=== PATIENT | female | born 1945 | race Caucasian/White ===

== ENCOUNTER 2018-06-04 08:00 | Day surgery (SDC) | payer OTHER, SELFPAY ==
[2018-06-04 08:50] VITALS: BP 127/78; PULSE 98; RESP 16; TEMP 36.3; O2SAT 93; BMI 42.5
[2018-06-04] MEDS: LACTATED RINGERS 1,000 ML 42 ML IV (08:57)
--- NOTE | 2018-06-04 09:03 | PM.PREOP ---
Pre-operative Note Interval Note Pre-op Check: Yes History & Physical Reviewed by Physician and Yes Exam Performed Changes: No
--- NOTE | 2018-06-04 10:32 | PM.OP.ENDO ---
Operative Date/Time/Diagnoses Date of procedure: 06/04/18 Time of procedure: 10:32 Pre-op diagnosis: Diarrhea chronic. Rectal bleeding intermittent. Post-op diagnosis: same (Two polyps. Extensive mann colonic diverticulosis with narrowing in the sigmoid colon) Procedure & Clinicians Study performed: Colonoscopy with cold biopsy Same procedure as scheduled: Yes Indications: Bleeding chronic diarrhea Surgeon: Turner Ashford Procedure Notes SCOAP/Timeout: Performed Scope withdrawal time: 13 min Sedation minutes: 0 Findings: diverticulosis, internal hemorrhoids (Small internal hemorrhoids but large external tags) and polyp (Ascending colon x2) Specimen(s): other (Polyps) Complications: none Recommendations: Colonscopy in 5 years Plan for aftercare: We will send you a letter regarding her pathology report Follow up: as needed Disposition: PACU
[2018-06-04 10:37] VITALS: BP 135/74; PULSE 103; RESP 14; TEMP 36.4; O2SAT 92
[2018-06-04 10:42] VITALS: BP 116/61; PULSE 104; RESP 12; O2SAT 91
[2018-06-04 10:47] VITALS: BP 111/65; PULSE 104; RESP 11; O2SAT 93
[2018-06-04 10:52] VITALS: BP 109/67; PULSE 101; RESP 19; TEMP 36.2; O2SAT 95
[2018-06-04 12:46] LABS: Adenovirus F 40/41 Not Detected (Not Detect); Astrovirus Not Detected (Not Detect); Campylobacter Not Detected (Not Detect); Clostridium difficile toxin AB Not Detected (Not Detect); Cryptosporidium Not Detected (Not Detect); Cyclospora cayetanensis Not Detected (Not Detect); Entamoeba histolytica Not Detected (Not Detect); Enteroaggregative E.coli Not Detected (Not Detect); Enteropathogenic E.coli Not Detected (Not Detect); Enterotoxigenic E.coli It/st Not Detected (Not Detect); Giardia lamblia Not Detected (Not Detect); Norovirus GI/GII Not Detected (Not Detect); Plesiomonsa shigelloides Not Detected (Not Detect); Rotavirus A Not Detected (Not Detect); Salmonella Not Detected (Not Detect); Sapovirus Not Detected; Shiga-like toxin-prod E.coli Not Detected (Not Detect); Shigella/Enteroinvasive E.coli Not Detected (Not Detect); Vibrio Not Detected (Not Detect); Vibrio cholerae Not Detected (Not Detect); Yersinia enterocolitica Not Detected (Not Detect)
--- NOTE | 2018-06-04 23:22 | PATH_ITS ---
Specimen ID: [id number] Control ID: [facility] PATHOLOGY ONLY [id number] [address] [facility] [id number] Patient Details SP JOHNS : 1945 Age(y/m/d): Gender: F SSN: Additional Information: Clinical Info: [id number] Specimen Details Date collected: 06/04/20182321 Local Date received: 06/04/2018 Date entered: 06/04/2018 Date reported: 06/10/2018 1905 ET Physician Details Ordering: Elisa CHANDLER Referring: ID: Tests Ordered: Pathology Report Clinician Provided ICD Code(s) & Clinical History: Material Submitted: () PART A: POLYP ASCENDING COLON PART B: RANDOM SIGMOID Diagnosis: (02) Polyp, Ascending Colon: Tubular adenoma. Sigmoid Colon, Random Biopsies: Normal colonic mucosa. No significant inflammation identified. No evidence of malignancy or dysplasia. BFI/06/05/2018 Pathologist Provided ICD Code(s): (02) D12.6 CPT Codes: (02) 544036, 356746 Gross Description: (01) Received two formalin-filled containers, both labeled with the patient's name: In a container labeled ascending polyp colon, are multiple less than 0.1 cm to 0.2 cm portions of tissue, which are filtered, wrapped, and entirely submitted in cassette A. In a container labeled random sigmoid, are multiple less than 0.1 cm to 0.3 cm portions of tissue, which are filtered, wrapped, and entirely submitted in cassette B. ([id number]) /FRR This is an amended report due to a clerical error. There is no change in the diagnosis. This case is amended in order for the results to cross the electronic interface. The final diagnosis is unchanged. This case was originally reported and reviewed by Dr. Tito Black on 06/05/2018. Electronically signed by () Kesha Richardson MD, Pathologist NPI- [id number]
== END 2018-06-04 10:52 | disposition home or self-care (01) ==
PROVIDERS: Family Provider Family Medicine; PCP Family Medicine; Visit Provider Specialist
PROC: 0DJD8ZZ Inspection of Lower Intestinal Tract, Via Natural or Artificial Opening Endoscopic (ICD-10-PCS; CPT 45378; principal; 2018-06-04 09:15)
DX: D12.2 Benign neoplasm of ascending colon (principal); R19.7 Diarrhea, unspecified; K57.30 Diverticulosis of large intestine without perforation or abscess without bleeding; K64.8 Other hemorrhoids; K64.4 Residual hemorrhoidal skin tags; I10 Essential (primary) hypertension; E11.9 Type 2 diabetes mellitus without complications; Z79.4 Long term (current) use of insulin; E66.9 Obesity, unspecified; E78.00 Pure hypercholesterolemia, unspecified; E03.9 Hypothyroidism, unspecified
CPT/HCPCS: 45380; 87177; 87507; J0330; J2405; J2704; J3010

== ENCOUNTER → 2018-12-08 11:47 | Outpatient (CLI) | payer OTHER, SELFPAY ==
--- NOTE | 2018-12-08 | DI.MG.S_ITS ---
BILATERAL DIGITAL SCREENING MAMMOGRAM 3D/2D WITH CAD: 12/08/2018 CLINICAL: Routine screening. Family history of breast cancer. Comparison is made to exams dated: 08/20/2016 mammogram, 01/05/2015 mammogram, and 12/28/2013 mammogram - [facility]. The tissue of both breasts is predominantly fatty. Current study was also evaluated with a Computer Aided Detection (CAD) system. There are benign post operative findings in the left breast. No significant masses, calcifications, or other findings are seen in either breast. There has been no significant interval change. IMPRESSION: There is no mammographic evidence of malignancy. A 1 year screening mammogram is recommended. This exam was interpreted at Station ID: [id number]. NOTE: For mammograms, a report in lay terms will be sent to the patient. Approximately 15% of breast malignancies will not be visualized mammographically. In the management of a palpable breast mass, a negative mammogram must not discourage biopsy of a clinically suspicious lesion. Electronically Signed By: Fernando hill/thuy:12/08/2018 13:35:55 copy to: Maye Alejandre letter sent: Normal Exam ACR BI-RADS Category 2: Benign Finding(s) 3342F
== END ==
PROVIDERS: PCP Family Medicine; Visit Provider Family Medicine
DX: Z12.31 Encounter for screening mammogram for malignant neoplasm of breast (principal); Z80.3 Family history of malignant neoplasm of breast
CPT/HCPCS: 77063; 77067

== ENCOUNTER → 2019-04-28 12:53 | Outpatient (CLI) | payer OTHER, SELFPAY ==
--- NOTE | 2019-04-28 | DI.US.S_ITS ---
PROCEDURE: US ABDOMEN COMPLETE INDICATIONS: ABDOMINAL PAIN TECHNIQUE: Real-time scanning was performed of the abdominal and retroperitoneal organs, with image documentation. COMPARISON: [facility], CT, KIDNEY/ URETER/BLADDER, 06/05/2016, 13:52. FINDINGS: Liver: Liver is normal in size and demonstrates diffusely increased echotexture. Gallbladder: Surgically absent. Biliary ducts: Intrahepatic bile ducts are non-dilated. Extrahepatic bile duct caliber measures 9.3 mm. Normal is 6-7 mm or less in diameter, or 10 mm or less post-cholecystectomy. Pancreas: Visualized portions of the pancreas are sonographically normal. Spleen: Spleen is normal in size and homogeneous in echotexture. Kidneys: Kidneys are normal in size and echotexture. Right kidney measures 11.2 cm long; left kidney measures 12.0 cm long. No hydronephrosis or nephrolithiasis. No solid masses. Aorta: Visualized aorta is normal in caliber at less than 3 cm. Iliacs: Proximal common iliac arteries are obscured by overlying bowel gas. IVC: Intrahepatic inferior vena cava is patent. Miscellaneous: No free abdominal fluid. IMPRESSION: 1. Diffusely increased hepatic echotexture. This finding is most likely secondary to hepatic fatty infiltration although other hepatocellular disease may have a similar appearance. Recommend clinical correlation. 2. Cholecystectomy. 3. Dilated common bile duct is most likely secondary to cholecystectomy. Please correlate with serum bilirubin. Dictated by: Mj Puri M.D. on 04/28/2019 at 15:54 Approved by: Mj Puri M.D. on 04/28/2019 at 15:58
== END ==
PROVIDERS: PCP Family Medicine; Visit Provider Family Medicine
DX: R10.9 Unspecified abdominal pain (principal); K83.8 Other specified diseases of biliary tract; Z90.49 Acquired absence of other specified parts of digestive tract
CPT/HCPCS: 76700

== ENCOUNTER → 2019-08-26 13:25 | Outpatient (CLI) | payer OTHER, SELFPAY ==
--- NOTE | 2019-08-26 14:58 | PM.TREADMILL ---
Cardiac Stress Test Report Referral & Results Date Patient Seen: 08/26/19 Requesting provider: Estelita King Indication: Known coronary disease Rest ECG: Unremarkable Procedure Note: Today following both written and verbal informed consent the patient was exercised according to a standard Raymundo protocol patient went for a total of 3 minutes and 26 seconds, all at stage I Raymundo, achieving a maximum heart rate of 140 maximum systolic blood pressure of 220. This is approximately 4.6 METS. Exercise was terminated at this point because of []. Patient was also given Cardiolite through a previously started Hep-Lock IV by the diagnostic imaging staff approximately 1 minute prior to the cessation of exercise. Patient was able to walk on a treadmill any faster than stage I Raymundo protocol. Therefore the treadmill was held at that stage. No ST-T segment changes identified Normal heart rate although quickly tachycardic but consistent with her level of exertion. Patient hypertensive throughout Rare PAC Function aerobic impairment rated about 40% of the sedentary scale Impression: No ECG evidence of ischemia Limited exercise capacity Hypertension Please see perfusion imaging report as well Please note: Actual ECG tracings can be found in the PACS system.
--- NOTE | 2019-08-28 08:05 | DI.NM.S_ITS ---
DATE OF SERVICE: 08/26/2019 PROCEDURE PERFORMED: Exercise treadmill stress and rest myocardial perfusion imaging study with gating to assess ejection fraction and regional wall motion. ORDERING PHYSICIAN: Estelita King MD INDICATIONS: The patient is a 74-year-old obese diabetic hyperlipidemic female with exertional dyspnea and coronary calcification on CT scanning. EXERCISE TREADMILL TESTING: The patient was able to exercise for a total of 3 minutes 26 seconds on a standard Raymundo protocol, suggesting moderate-severely reduced exercise capacity with an MERE of +30%. She had an accelerated heart rate response to exercise with a resting heart rate of 87 bpm that increased to 132 bpm after 2.5 minutes of exercise and reached a peak heart rate of 140 bpm (95% of her predicted maximum). She had a hypertensive blood pressure response with a resting blood pressure of 170/80 increasing to a maximum of 220/96. She had no chest discomfort. Her resting ECG shows sinus rhythm with fairly normal ST segments. There are no significant ST segment shifts with exercise. She develops frequent PVCs at peak exercise but no complex ventricular ectopy. At 2 minutes 32 seconds of exercise, at a heart rate of 132 bpm, 26.2 mCi of technetium 99 Myoview was injected and the patient was imaged 15 minutes later using a gated SPECT acquisition protocol. She returned the following day and was reinjected with an additional 27.3 mCi of technetium 99 Myoview and was imaged 30 minutes later, again using a gated SPECT acquisition protocol. FINDINGS: 1. Raw data: There is marginal image quality, predominantly due to fairly dense breast attenuation seen on the raw data images. Lung/heart ratio is normal at 0.28 with a normal TID ratio of 1.00. 2. Quantitative gated SPECT: Post-stress ejection fraction is estimated at 65% without any focal wall motion abnormality, and specifically the anterior wall appears to have normal contractility. Resting ejection fraction is 68% with an end-diastolic volume of 130 mL. 3. Myocardial perfusion imaging: Post-stress supine images show a fairly normal perfusion pattern but with a very subtle defect in the mid to distal anterior wall in a pattern that would be consistent with breast attenuation artifact. There is also a very subtle defect in the mid inferior wall, consistent with diaphragmatic attenuation. Both of these defects essentially resolve on prone imaging, although a very subtle defect remains present in the anterior septum on the prone images but shifted medially, suggesting differential breast positioning. The resting images show a similar perfusion pattern, again with a mild anterior and inferior defect. CONCLUSION: 1. Probable normal myocardial perfusion study. 2. A subtle fixed mid to distal anterior defect that essentially resolves on prone imaging, most consistent with breast attenuation artifact. The absence of any regional wall motion abnormality mitigates against any previous infarct. There is no compelling evidence for myocardial ischemia. 3. Normal left ventricular systolic function without any focal regional wall motion abnormality. 4. Moderate-severely reduced exercise capacity with an accelerated heart rate response and hypertensive blood pressure response, suggesting poor cardiovascular fitness but no angina or ECG changes of ischemia, although frequent PVCs at peak exercise but no complex ventricular ectopy. SarthakMahnaz - RS/fn/ts doc#: [id number]/job#: [id number] dd: 08/27/2019 16:30:00 dt: 08/28/2019 07:43:00 DICTATING /COPIES TO: Liam Williamson MD; Estelita King MD COPIES MNE: EN RIOS
== END ==
PROVIDERS: PCP Family Medicine; Visit Provider Internal Medicine Cardiovascular Disease
DX: R06.09 Other forms of dyspnea (principal); I25.10 Atherosclerotic heart disease of native coronary artery without angina pectoris; E66.9 Obesity, unspecified; E11.9 Type 2 diabetes mellitus without complications; E78.5 Hyperlipidemia, unspecified; I10 Essential (primary) hypertension
CPT/HCPCS: 78452; 93016; 93017; 93018; A9502

== ENCOUNTER 2019-09-04 16:34 | Emergency (ER) | payer OTHER, SELFPAY ==
[2019-09-04 16:50] VITALS: BP 158/88; PULSE 97; RESP 22; TEMP 36.8; O2SAT 93
[2019-09-04 18:13] LABS: Bacteria Urine Few (2-10); Culture Indicated Urine Specimen Cultured; RBC Urine 1-5/HPF (0-5/HPF); Squamous Epithelial Cell Urine 0-1 /HPF (0-5/HPF); WBC Urine 10-30/HPF (0-5/HPF)
[2019-09-04 18:14] LABS: Add Manual Diff / Slide Review NO; Basophils Absolute Auto 100 /uL (0-100); Basophils Percent Auto 0.7 % (0-2); Eosinophils Absolute Auto 100 /uL (0-450); Eosinophils Percent Auto 0.5 % (2-4); Hemoglobin 14.4 g/dL (12.0-16.0); Lymphocytes Absolute Auto 1200 /uL (1100-4500); Lymphocytes Percent Auto 7.5 % (25-40); Mean Corpuscular HGB Conc 33.4 % (30-36); Mean Corpuscular Hemoglobin 31.5 PG (26-34); Mean Corpuscular Volume 94.1 fL (80-100); Monocytes Absolute Auto 700 /uL (0-900); Monocytes Percent Auto 4.3 % (3-14); Neutrophils Absolute Auto 13900 /uL (1500-7000); Platelet Count 283 X10^3/uL (150-400); Red Blood Cell Count 4.57 X10^6/uL (4.0-5.2); Red Cell Distribution Width 12.8 % (11.6-14.8); White Blood Cell Count 15.9 X10^3/uL (4.5-11.0)
[2019-09-04 18:28] LABS: Prothrombin Time 11.2 SECONDS (10.1-12.7)
[2019-09-04 18:31] LABS: PTT Partial Thromboplastin Tim 33 SECONDS (26.4-36.2)
--- NOTE | 2019-09-04 18:31 | ED.ABDPAIN ---
HPI - Abdominal Pain General Chief Complaint: Abdominal Pain Stated Complaint: lower left abdominal pain with vomiting and diarrh Time Seen by Provider: 09/04/19 16:40 Mode of arrival: Wheelchair History of Present Illness HPI narrative: 74-year-old female former smoker with history of kidney stones and diverticulitis presents with a chief complaint of a day or 2 of gradually worsening severe left lower quadrant pain. She has had some nausea and some vomiting and loose stools. Additionally she admits to some dysuria, frequency and urgency. Her pain is worse when she moves and improves with rest. It includes her left flank and goes down into her left groin. She has had subjective fever and chills MD complaint: flank pain Onset (ago): day(s) Pain Consistency: constant Location: LUQ, LLQ and L flank Severity: moderate Quality: cramping, stabbing and aching Migration to: no migration Relieving factors: rest Exacerbating factors: movement Associated symptoms: nausea, vomiting and diarrhea Related Data Home Medications Medication Instructions Recorded Confirmed alprazolam [Xanax] 0.5 mg PO DAILY #0 06/17/16 06/02/18 cyclobenzaprine 10 mg PO BID #0 06/17/16 06/04/18 flunisolide 2 spray INTRANASAL BIDP PRN #0 06/17/16 06/04/18 insulin glargine [Lantus U-100 35 unit SQ BID #0 06/17/16 06/04/18 Insulin] levothyroxine 200 mcg PO QAM #0 06/17/16 06/04/18 lisinopril 40 mg PO QDAY #30 tab 06/17/16 06/04/18 metformin [Glucophage XR] 1,000 mg PO DAILY #0 06/17/16 06/04/18 insulin lispro [Humalog KwikPen 25 unit SQ TID #0 06/21/16 06/04/18 Insulin] aspirin 81 mg PO QDAY #0 12/02/16 06/04/18 cholecalciferol (vitamin D3) 2,000 iu PO QDAY #0 12/02/16 06/04/18 [Vitamin D3] diazepam [Valium] 10 mg PO HSP PRN #0 12/02/16 06/04/18 magnesium oxide 250 mg PO QDAY #0 12/02/16 06/04/18 simethicone [Phazyme] 180 mg PO TID #0 12/02/16 06/04/18 simvastatin 20 mg PO QDAY #0 12/02/16 06/04/18 vitamin B complex [B 1 tab PO QDAY #0 12/02/16 06/04/18 Complex-Vitamin B12] vitamin E 400 unit PO QDAY #0 12/02/16 06/04/18 omeprazole 40 mg capsule,delayed 40 mg PO DAILY 06/02/18 06/04/18 release ascorbic acid (vitamin C) 1,000 mg PO DAILY 06/04/18 06/04/18 Allergies Allergy/AdvReac Type Severity Reaction Status Date / Time hydromorphone [HYDROMORPHONE] Allergy Severe PASSED Verified 06/04/18 08:33 OUT, EMESIS Iodine and Iodide Containing Allergy Mild HIVES, Verified 06/04/18 08:33 Produc RASH, [IODINE AND IODIDE ITCHING CONTAINING PRODUC] (HAS TO TAKE PILLS PRIOR TO CT SCAN) lovastatin [LOVASTATIN] Allergy Unknown Verified 06/04/18 08:33 oxycodone [OXYCODONE] Allergy Unknown Disoriented Verified 06/04/18 08:33 and lethargic felodipine [FELODIPINE] AdvReac Mild RED, Verified 06/04/18 08:33 VASODILATION, DIDN'T WORK fluticasone [FLUTICASONE] AdvReac Mild HEADACHE Verified 06/04/18 08:33 Sulfa (Sulfonamide AdvReac Mild TURNED RED Verified 06/04/18 08:33 Antibiotics) [SULFA (SULFONAMIDE ANTIBIOTICS)] Review of Systems Constitutional Constitutional: Reports chills, Denies fatigue, Reports fever(s), Denies frequent falls, Denies lethargy and Denies weakness Eyes Eyes: Denies change in vision, Denies eye discharge, Denies irritation and Denies loss of vision ENT Ears, Nose, Mouth, and Throat: Denies change in voice, Denies dizziness, Denies neck pain, Denies sore throat and Denies throat swelling Cardiovascular Cardiovascular: Denies chest pain, Denies irregular heart rhythm, Denies lightheadedness, Denies palpitations, Denies dyspnea, Denies dyspnea on exertion and Denies orthopnea Respiratory Respiratory: Denies cough, Denies dyspnea, Denies dyspnea on exertion and Denies wheezing Gastrointestinal Gastrointestinal: Reports abdominal pain, Denies change in bowel habits, Reports diarrhea, Reports nausea and Reports vomiting Genitourinary Genitourinary: Denies hematuria, Denies flank pain, Denies urinary incontinence and Reports urinary urgency Musculoskeletal Musculoskeletal: Denies back pain, Denies muscle weakness, Denies neck pain, Denies numbness and Denies tingling Integumentary/Breasts Skin/Breast: Denies pruritus, Denies erythema, Denies rash and Denies wounds Neurologic Neurologic: Denies behavioral changes, Denies confusion, Denies dizziness, Denies frequent falls, Denies loss of vision, Denies numbness, Denies tingling and Denies weakness Psychiatric Psychiatric: Denies anxiety, Denies behavioral changes, Denies confusion, Denies depression, Denies homicidal ideation and Denies suicidal ideation Endocrine Endocrine: Denies fatigue, Denies flushing and Denies palpitations Hematologic/Lymphatic Hematologic/Lymphatic: Denies easy bruising Allergic/Immunologic Allergic/Immunologic: Denies urticaria, Denies throat swelling and Denies wheezing Patient History Medical History Chronic diarrhea (Chronic) Diabetes mellitus type 2 in obese (Chronic) Elevated cholesterol (Chronic) Essential hypertension (Chronic) H/O nephrolithotomy with removal of calculi (Inactive) History of uterine cancer (Inactive) Hypothyroidism (Chronic) Surgical History H/O cervical spine surgery (Inactive) History of appendectomy (Resolved) History of cholecystectomy (Resolved) History of incisional hernia repair (Inactive) History of total left knee replacement (Inactive) Previous back surgery (Inactive) S/P JAE-BSO (Inactive) Family History Father Heart disease Gallstones Diabetes mellitus Mother Gallstones Social History (Updated 06/02/18 @ 18:08 by Turner Ashford MD) household members: spouse Smoking Status: Former smoker Tobacco: How many years used: 35 alcohol intake: never substance use type: does not use Family History Father Heart disease Gallstones Diabetes mellitus Mother Gallstones Social History household members: spouse Smoking Status: Former smoker Tobacco: How many years used: 35 alcohol intake: never substance use type: does not use alcohol intake frequency: other Exam Narrative Exam Narrative: GENERAL: [74] year old patient appears stated age. Well-nourished, well-developed patient, in mild distress. Ill-appearing, rubbing her left lower quadrant HEAD: Atraumatic. Normocephalic. EYES: Pupils equal round and reactive. Extraocular motions intact. No scleral icterus. No injection or drainage. ENT: Nose without bleeding, purulent drainage. Throat without erythema, tonsillar hypertrophy or exudate. Airway patent. NECK: Trachea midline. Non tender CARDIOVASCULAR: Regular rate and rhythm without murmurs, gallops, or rubs. RESPIRATORY: Clear to auscultation. Breath sounds equal bilaterally. No wheezes, rales, or rhonchi. GASTROINTESTINAL: Abdomen soft, tender to palpation, guarding, nondistended. EXTREMITIES: No edema or joint tenderness. BACK: Nontender without deformity or crepitance. No flank tenderness. NEURO: AOx3. SKIN: No rash or erythema of visible areas Initial Vital Signs Initial Vital Signs: Vital Signs Temperature 98.3 F 09/04/19 16:50 Pulse Rate 97 H 09/04/19 16:50 Respiratory Rate 22 09/04/19 16:50 Blood Pressure 158/88 H 09/04/19 16:50 Pulse Oximetry 93 09/04/19 16:50 Course Orders Ordered: ED Orders 09/04/19 17:06 EKG-12 Lead Stat 09/04/19 18:00 Complete Blood Count AUTO DIFF Stat Comprehensive Metabolic Panel Stat Lipase Stat Partial Thromboplastin Time Stat Procalcitonin Stat Prothrombin Time INR Stat 09/04/19 18:02 Urine Culture Stat Urine Microscopic Stat 09/04/19 18:39 CT abdomen pelvis w con Stat 09/04/19 20:35 Blood Culture Stat Discontinued Medications Diphenhydramine HCl (Benadryl) 25 mg IV NOW ONE Stop: 09/04/19 18:39 Last Admin: 09/04/19 19:17 Dose: 25 mg Documented by: ANDRESSA Famotidine (Pepcid) 20 mg in 50 mls @ 200 mls/hr IV NOW ONE Stop: 09/04/19 18:52 Last Infusion: 09/04/19 19:39 Dose: 0 mls/hr Documented by: Admin: 09/04/19 19:20 Dose: 200 mls/hr Documented by: ANDRESSA Ceftriaxone Sodium/Dextrose (Rocephin) 1 gm in 50 mls @ 100 mls/hr IV NOW ONE Stop: 09/04/19 19:07 Last Infusion: 09/04/19 19:39 Dose: 0 mls/hr Documented by: Admin: 09/04/19 19:16 Dose: 100 mls/hr Documented by: ANDRESSA Sodium Chloride (Normal Saline 0.9%) 500 mls @ 1,000 mls/hr IV BOLUS ONE Stop: 09/04/19 19:09 Last Infusion: 09/04/19 19:53 Dose: 0 mls/hr Documented by: Admin: 09/04/19 19:17 Dose: 1,000 mls/hr Documented by: ANDRESSA Methylprednisolone (Solu-Medrol 125 Mg Vial) 125 mg IV NOW ONE Stop: 09/04/19 19:27 Last Admin: 09/04/19 19:31 Dose: 125 mg Documented by: ANDRESSA Morphine Sulfate (Morphine) 4 mg IV NOW ONE Stop: 09/04/19 18:39 Last Admin: 09/04/19 19:16 Dose: 4 mg Documented by: ANDRESSA Ondansetron HCl (Zofran) 4 mg IV NOW ONE Stop: 09/04/19 18:39 Last Admin: 09/04/19 19:15 Dose: 4 mg Documented by: ANDRESSA Consultations Consultation #1: given history with Dr. Marx, I called education and training manager urology, whom is agreement with management thusfar, recommends transfer, NPO status, fluids, ABX and admission to hospitalist. Time: 20:45 Consultation #2: call to [facility] Hospitalist, Dr. Mason. Time: 20:45 Vital Signs Vital signs: Vital Signs - 8 hr 09/04/19 16:50 09/04/19 18:53 09/04/19 20:50 Temperature 98.3 F Pulse Rate 97 H 99 H 106 H Respiratory Rate 22 21 24 Blood Pressure 158/88 H Blood Pressure [Right Arm] 163/88 H 157/70 H Pulse Oximetry 93 93 99 MDM - Abdominal Pain Lab Data Result diagrams: 09/04/19 18:00 09/04/19 18:00 Labs: Lab Results 09/04/19 09/04/19 09/04/19 Range/Units 18:00 18:00 18:00 WBC 15.9 H (4.5-11.0) X10^3/uL RBC 4.57 (4.0-5.2) X10^6/uL Hgb 14.4 (12.0-16.0) g/dL Hct 43.0 (36-46) % MCV 94.1 (80-100) fL MCH 31.5 (26-34) PG MCHC 33.4 (30-36) % RDW 12.8 (11.6-14.8) % Plt Count 283 (150-400) X10^3/uL Neut % (Auto) 87.0 H (50-75) % Lymph % (Auto) 7.5 L (25-40) % [place] % (Auto) 4.3 (3-14) % Eos % (Auto) 0.5 L (2-4) % Baso % (Auto) 0.7 (0-2) % Neut # (Auto) 67790 H (6050-9221) /uL Lymph # (Auto) 1200 (7380-5953) /uL [place] # (Auto) 700 (0-900) /uL Eos # (Auto) 100 (0-450) /uL Baso # (Auto) 100 (0-100) /uL PT 11.2 (10.1-12.7) SECONDS INR 1.0 (0.9-1.3) APTT 33 (26.4-36.2) SECONDS Sodium 138 (137-145) mmol/L Potassium 4.7 (3.4-5.1) mmol/L Chloride 99 (98-107) mmol/L Carbon Dioxide 27 (22-32) mmol/L BUN 26 H (7-17) mg/dL Creatinine 0.90 (0.52-1.04) mg/dL Estimated GFR > 60.0 (>60) mL/min BUN/Creatinine Ratio 28.9 H (6-22) Glucose 299 H (80-110) mg/dL Calcium 9.2 (8.4-10.2) mg/dL Total Bilirubin 0.5 (0.2-1.3) mg/dL AST 35 (14-36) IU/L ALT 32 (9-52) IU/L Alkaline Phosphatase 69 (38-126) U/L Total Protein 8.2 (6.3-8.2) g/dL Albumin 4.7 (3.5-5.0) g/dL Globulin 3.5 (1.7-4.1) g/dL Albumin/Globulin Ratio 1.3 (1.0-2.8) Lipase 35 (23-300) U/L Procalcitonin (<0.5) ng/mL Urine RBC (0-5/HPF) Urine WBC (0-5/HPF) Ur Squamous Epith Cells (0-5/HPF) Urine Bacteria (None) Ur Culture Indicated? 09/04/19 09/04/19 Range/Units 18:00 18:02 WBC (4.5-11.0) X10^3/uL RBC (4.0-5.2) X10^6/uL Hgb (12.0-16.0) g/dL Hct (36-46) % MCV (80-100) fL MCH (26-34) PG MCHC (30-36) % RDW (11.6-14.8) % Plt Count (150-400) X10^3/uL Neut % (Auto) (50-75) % Lymph % (Auto) (25-40) % [place] % (Auto) (3-14) % Eos % (Auto) (2-4) % Baso % (Auto) (0-2) % Neut # (Auto) (7412-9123) /uL Lymph # (Auto) (2272-7082) /uL [place] # (Auto) (0-900) /uL Eos # (Auto) (0-450) /uL Baso # (Auto) (0-100) /uL PT (10.1-12.7) SECONDS INR (0.9-1.3) APTT (26.4-36.2) SECONDS Sodium (137-145) mmol/L Potassium (3.4-5.1) mmol/L Chloride (98-107) mmol/L Carbon Dioxide (22-32) mmol/L BUN (7-17) mg/dL Creatinine (0.52-1.04) mg/dL Estimated GFR (>60) mL/min BUN/Creatinine Ratio (6-22) Glucose (80-110) mg/dL Calcium (8.4-10.2) mg/dL Total Bilirubin (0.2-1.3) mg/dL AST (14-36) IU/L ALT (9-52) IU/L Alkaline Phosphatase (38-126) U/L Total Protein (6.3-8.2) g/dL Albumin (3.5-5.0) g/dL Globulin (1.7-4.1) g/dL Albumin/Globulin Ratio (1.0-2.8) Lipase (23-300) U/L Procalcitonin < 0.05 (<0.5) ng/mL Urine RBC 1-5/hpf (0-5/HPF) Urine WBC 10-30/hpf H (0-5/HPF) Ur Squamous Epith Cells 0-1 /hpf (0-5/HPF) Urine Bacteria Few (2-10) H (None) Ur Culture Indicated? Specimen cultured Point of care testing: Urine Dip Bedside Urine Glucose 1000 mg/dl Bedside Urine Bilirubin - Negative Bedside Urine Ketone ++ 40 Urine Specific [place] 1.020 Bedside Urine Occult Blood + Bedside Urine pH 6.0 Bedside Urine Protein + 30 Bedside Urine Urobilinogen - Negative Bedside Urine Nitrite - Negative Bedside Urine Leukocytes - Negative Esterase Imaging Data CT scan - abdomen: Radiologist's impression: [place] [address] CT Scan Report Signed Patient: Mahnaz De León [facility]#: [id number] : 7Acct:[id number] Age/Sex: 74 / FDate of Service: 09/04/19 Loc: ED Accession Number: [id number] Procedure: CT abdomen pelvis w con Ordering Provider: Khurram King D.O. PROCEDURE: CT ABDOMEN PELVIS W CON INDICATIONS: severe LLQ pain TECHNIQUE: After the administration of intravenous contrast, 5 mm thick sections acquired from the diaphragm to the symphysis. 5 mm coronal and sagittal reformats were acquired. For radiation dose reduction, the following was used: automated exposure control, adjustment of mA and/or kV according to patient size. COMPARISON: None. FINDINGS: Image quality: Excellent. ABDOMEN: Lung bases: Lung bases are clear. Heart size is normal. Coronary artery calcifications. Solid organs: Liver is normal in size and enhancement. Gallbladder is surgically absent. Biliary system is non dilated. Pancreas enhances normally. Spleen is normal in size and enhancement. No adrenal nodules. A 5 mm calculus in the proximal left ureter, (2/51). There is moderate left hydronephrosis. There is a moderate amount of fluid surrounding the left kidney which raises the possibility of forniceal rupture. No additional kidney stones. Kidneys enhance symmetrically. No solid mass. Peritoneum and bowel: Bowel loops demonstrate normal wall thickness and caliber. Moderate diverticulosis. No free fluid or air. Nodes and vessels: No retroperitoneal or mesenteric adenopathy by size criteria. Aorta and inferior vena cava are normal in size. Mild to moderate calcified atherosclerotic plaque. Miscellaneous: Tiny fat-containing ventral hernia. PELVIS: Genitourinary: No bladder calculus. Uterus is surgically absent. Miscellaneous: No inguinal hernias or adenopathy. Bones: No suspicious bony lesions. No vertebral body compression fractures. L2-L5 pedicle screws with intervertebral body spacers. IMPRESSION: 1. Obstructing calculus in the proximal left ureter measuring 5 mm. Moderate left hydronephrosis. Question of left forniceal rupture. 2. No additional kidney stones. Comment: Findings were discussed with the Khurram King DO at the time of dictation. Dictated by: Renny Rivera M.D. on 09/04/2019 at 20:06 Approved by: Renny Rivera M.D. on 09/04/2019 at 20:15 Discharge Plan Departure Patient Disposition: [facility] Clinical Impression: Obstructed, uropathy, Acute UTI Prescriptions: No Action metformin [Glucophage XR] 500 MG tablet extended release 24 hr 1,000 mg PO DAILY Qty: 0 RF: 0 cyclobenzaprine 10 MG tablet 10 mg PO BID Qty: 0 RF: 0 alprazolam [Xanax] 0.5 MG tablet 0.5 mg PO DAILY Qty: 0 RF: 0 flunisolide 0.025 % spray,non-aerosol 2 spray Intranasal BIDP PRN (Reason: Allergy Symptoms) Qty: 0 RF: 0 insulin glargine [Lantus U-100 Insulin] 100 UNIT/1 ML solution 35 unit SQ BID Qty: 0 RF: 0 levothyroxine 200 MCG tablet 200 mcg PO QAM Qty: 0 RF: 0 lisinopril 40 MG tablet 40 mg PO QDAY Qty: 30 RF: 0 insulin lispro [Humalog KwikPen Insulin] 100 UNIT/1 ML insulin pen 25 unit SQ TID Qty: 0 RF: 0 simvastatin 20 MG tablet 20 mg PO QDAY Qty: 0 RF: 0 simethicone [Phazyme] 180 MG capsule 180 mg PO TID Qty: 0 RF: 0 aspirin 81 MG tablet,delayed release (DR/EC) 81 mg PO QDAY Qty: 0 RF: 0 vitamin E 400 UNIT capsule 400 unit PO QDAY Qty: 0 RF: 0 cholecalciferol (vitamin D3) [Vitamin D3] 2,000 UNIT capsule 2,000 iu PO QDAY Qty: 0 RF: 0 vitamin B complex [B Complex-Vitamin B12] 1 EACH tablet 1 tab PO QDAY Qty: 0 RF: 0 magnesium oxide 250 MG tablet 250 mg PO QDAY Qty: 0 RF: 0 diazepam [Valium] 10 MG tablet 10 mg PO HSP PRN (Reason: Anxiety) Qty: 0 RF: 0 omeprazole 40 mg capsule,delayed release(DR/EC) 40 mg PO DAILY RF: 0 ascorbic acid (vitamin C) 500 MG tablet 1,000 mg PO DAILY RF: 0 Referrals: Maye Alejandre MD [Primary Care Provider] -
[2019-09-04 18:34] LABS: Alanine Aminotransferase 32 IU/L (9-52); Albumin 4.7 g/dL (3.5-5.0); Albumin Globulin Ratio 1.3 (1.0-2.8); Alkaline Phosphatase 69 U/L (38-126); Aspartate Aminotransferase 35 IU/L (14-36); BUN Creatinine Ratio 28.9 (6-22); Bilirubin Total 0.5 mg/dL (0.2-1.3); Blood Urea Nitrogen 26 mg/dL (7-17); Calcium 9.2 mg/dL (8.4-10.2); Carbon Dioxide 27 mmol/L (22-32); Chloride 99 mmol/L (98-107); Estimated Glomerular Filt Rate > 60.0 mL/min (>60); Globulin 3.5 g/dL (1.7-4.1); Glucose 299 mg/dL (80-110); HEMOLYSIS < 15 (0-50); Lipase 35 U/L (23-300); Potassium 4.7 mmol/L (3.4-5.1); Sodium 138 mmol/L (137-145); Total Protein 8.2 g/dL (6.3-8.2)
--- NOTE | 2019-09-04 18:39 | DI.CT.S_ITS ---
PROCEDURE: CT ABDOMEN PELVIS W CON INDICATIONS: severe LLQ pain TECHNIQUE: After the administration of intravenous contrast, 5 mm thick sections acquired from the diaphragm to the symphysis. 5 mm coronal and sagittal reformats were acquired. For radiation dose reduction, the following was used: automated exposure control, adjustment of mA and/or kV according to patient size. COMPARISON: None. FINDINGS: Image quality: Excellent. ABDOMEN: Lung bases: Lung bases are clear. Heart size is normal. Coronary artery calcifications. Solid organs: Liver is normal in size and enhancement. Gallbladder is surgically absent. Biliary system is non dilated. Pancreas enhances normally. Spleen is normal in size and enhancement. No adrenal nodules. A 5 mm calculus in the proximal left ureter, (2/51). There is moderate left hydronephrosis. There is a moderate amount of fluid surrounding the left kidney which raises the possibility of forniceal rupture. No additional kidney stones. Kidneys enhance symmetrically. No solid mass. Peritoneum and bowel: Bowel loops demonstrate normal wall thickness and caliber. Moderate diverticulosis. No free fluid or air. Nodes and vessels: No retroperitoneal or mesenteric adenopathy by size criteria. Aorta and inferior vena cava are normal in size. Mild to moderate calcified atherosclerotic plaque. Miscellaneous: Tiny fat-containing ventral hernia. PELVIS: Genitourinary: No bladder calculus. Uterus is surgically absent. Miscellaneous: No inguinal hernias or adenopathy. Bones: No suspicious bony lesions. No vertebral body compression fractures. L2-L5 pedicle screws with intervertebral body spacers. IMPRESSION: 1. Obstructing calculus in the proximal left ureter measuring 5 mm. Moderate left hydronephrosis. Question of left forniceal rupture. 2. No additional kidney stones. Comment: Findings were discussed with the Khurram King DO at the time of dictation. Dictated by: Renny Rivera M.D. on 09/04/2019 at 20:06 Approved by: Renny Rivera M.D. on 09/04/2019 at 20:15
[2019-09-04 18:53] VITALS: BP 163/88; PULSE 99; RESP 21; O2SAT 93
[2019-09-04] MEDS: ONDANSETRON 4 MG/2 ML INJ IV (19:15)
[2019-09-04] MEDS: CEFTRIAXONE 1 GM/50 ML FROZ.PIGGY IV (19:16)
[2019-09-04] MEDS: MORPHINE 4 MG/ML INJ IV (19:16)
[2019-09-04] MEDS: SODIUM CHLORIDE 0.9% 500 ML 1000 ML IV (19:17)
[2019-09-04] MEDS: diphenhydrAMINE 50 MG/ML VIAL 25 MG IV (19:17)
[2019-09-04] MEDS: FAMOTIDINE 20 MG/50 ML PIGGYBACK 200 MG IV (19:20)
[2019-09-04] MEDS: methylPREDNISolone 125 MG/2 ML VIAL IV (19:31)
--- NOTE | 2019-09-04 19:44 | PC.NURSE ---
Pt placed on 2lpm nc post pain medication. Pt states she still has pain when stimulated then falls asleep.
[2019-09-04 20:50] VITALS: BP 157/70; PULSE 106; RESP 24; O2SAT 99
[2019-09-04 21:30] VITALS: BP 165/65; PULSE 110; RESP 22; O2SAT 98
[2019-09-04 21:35] LABS: Procalcitonin < 0.05 ng/mL (<0.5)
[2019-09-04 22:23] VITALS: BP 159/88; PULSE 120; RESP 24; TEMP 36.8; O2SAT 97
== END 2019-09-04 22:48 | disposition short-term general hospital (02) ==
PROVIDERS: Emergency Medicine; Emergency Provider Emergency Medicine; PCP Family Medicine
DX: N13.9 Obstructive and reflux uropathy, unspecified (principal); N39.0 Urinary tract infection, site not specified; R11.2 Nausea with vomiting, unspecified; R19.7 Diarrhea, unspecified; R10.9 Unspecified abdominal pain
CPT/HCPCS: 36415; 74177; 80053; 81003; 81015; 83690; 84145; 85025; 85610; 85730; 87077; 87086; 87186; 93005; 96365; 96368; 96375; 99284; 99285; J1200; J2270; J2405; J2930; Q9967

== ENCOUNTER → 2019-09-24 12:18 | Outpatient (CLI) | payer OTHER, SELFPAY ==
--- NOTE | 2019-09-24 | DI.RAD.S_ITS ---
PROCEDURE: XR ABDOMEN 1V INDICATIONS: Calculus of ureter TECHNIQUE: One view of the abdomen acquired. COMPARISON: [facility], CT, CT ABDOMEN PELVIS W CON, 09/04/2019, 19:47. FINDINGS: Surgical changes and devices: Lower lumbar fusion is present. Right ureterovesicular stent is present. Bowel: Bowel gas pattern is normal. Soft tissues: No suspicious abdominal calcifications. Visualized solid organ contours appear normal in size. Previously identified proximal left ureteral calculus is no longer visualized. Bones: No suspicious bony lesions. IMPRESSION: Previous ureteral calculus is no longer visualized. Dictated by: Nadya Childs M.D. on 09/24/2019 at 16:18 Approved by: Nadya Childs M.D. on 09/24/2019 at 16:19
== END ==
PROVIDERS: PCP Family Medicine; Visit Provider Urology
DX: N20.1 Calculus of ureter (principal); Z98.1 Arthrodesis status
CPT/HCPCS: 74018

== ENCOUNTER → 2019-11-03 14:09 | Outpatient (CLI) | payer OTHER, SELFPAY ==
[2019-11-03 14:45] LABS: BUN Creatinine Ratio 36.3 (6-22); Blood Urea Nitrogen 29 mg/dL (7-17); Calcium 9.6 mg/dL (8.4-10.2); Carbon Dioxide 27 mmol/L (22-32); Chloride 100 mmol/L (98-107); Estimated Glomerular Filt Rate > 60.0 mL/min (>60); Glucose 216 mg/dL (80-110); HEMOLYSIS < 15 (0-50); Potassium 4.4 mmol/L (3.4-5.1); Sodium 140 mmol/L (137-145)
== END ==
PROVIDERS: PCP Physician Assistant; Visit Provider Physician Assistant
DX: I10 Essential (primary) hypertension (principal)
CPT/HCPCS: 36415; 80048

== ENCOUNTER → 2019-11-04 10:30 | Outpatient (CLI) | payer OTHER, SELFPAY ==
--- NOTE | 2019-11-04 | DI.CT.S_ITS ---
PROCEDURE: CT ANGIO HEAD AND NECK INDICATIONS: RIGHT TEMPORAL HEADACHE TECHNIQUE: Pre-contrast 4.5 mm thick sections acquired from the foramen magnum to the vertex. After the administration of intravenous contrast, 1 mm thick sections acquired from the aortic arch through the [place]. Post-contrast 4.5 mm thick sections then re-acquired from the foramen magnum to the vertex. 3-dimensional skxxwat-evtfqzggj-lpmoeyjxsa (MIP) and/or volume rendering reformats were acquired of the central intracranial vasculature and neck separately. The patient was premedicated for her iodine allergy prior to contrast administration. There is no immediate contrast reaction. COMPARISON: None. FINDINGS: Image quality: Excellent. BRAIN: CSF spaces: Ventricles are normal in size and shape. Basal cisterns are patent. No extra-axial fluid collections. Brain: No midline shift. No intracranial bleeds or masses. [place]-white matter interface appears intact. Skull and face: Calvarium and facial bones appear intact, without suspicious lesions. Orbits appear normal. Incidental note is made of hyperostosis frontalis. This is not considered to be pathologic in a woman of this age. Sinuses: Sinuses and mastoids are clear. HEAD CT ANGIOGRAPHY: Anterior circulation: Intracranial internal carotid arteries are normal in size and flow. The flow within the paired anterior cerebral arteries is normal and symmetric. The flow within the middle cerebral arteries is normal and symmetric. The anterior communicating artery is not well seen. No aneurysms are seen. Posterior circulation: There vertebral artery is dominant and the left. The left vertebral artery largely terminates in the left posterior inferior cerebellar artery. There is a normal appearing basilar artery. Flow within the posterior cerebral arteries is normal and symmetric. No aneurysms are seen. NECK CT ANGIOGRAPHY: Carotid system: The great vessels demonstrate a conventional anatomy as they arise from the aortic arch. The origins of the common carotid arteries appear patent. The common carotid arteries demonstrate normal caliber and courses. The bifurcation regions are both widely patent. The internal carotid arteries demonstrate normal calibers and courses. Posterior circulation: The origins of the vertebral arteries both appear widely patent. The more superior extracranial portions of both vertebral arteries also demonstrate normal courses and calibers. The right vertebral artery is dominant to the left. Soft tissues: Visualized neck soft tissues demonstrate no suspicious abnormalities. The thyroid is not well-seen. Bones: No suspicious bony lesions. Visualized cervical spine appears normally aligned. Postoperative changes are seen, with anterior fixation hardware C5-C7. There is at least moderate disc space narrowing seen at C4-C5 and moderate to severe disc space narrowing at C7-T1. Mild grade 1 anterolisthesis is seen at C7-T1. IMPRESSION: No imaging explanation is found for this patient's presenting symptoms. No significant intracranial abnormality is detected. No significant intracranial arterial abnormality can be seen. The right vertebral artery is dominant to the left and the left vertebral artery largely terminates in the left posterior inferior cerebellar artery. Cervical spine postoperative and degenerative changes can be seen. Any quantitative measurements of stenosis were performed using NASCET criteria. Dictated by: Sebastian Hidalgo M.D. on 11/04/2019 at 11:08 Approved by: Sebastian Hidalgo M.D. on 11/04/2019 at 11:13
== END ==
PROVIDERS: PCP Physician Assistant; Visit Provider Physician Assistant
DX: R51 Headache (principal); M47.812 Spondylosis without myelopathy or radiculopathy, cervical region; M48.02 Spinal stenosis, cervical region; M48.03 Spinal stenosis, cervicothoracic region; M43.13 Spondylolisthesis, cervicothoracic region
CPT/HCPCS: 70496; 70498; Q9967

== ENCOUNTER → 2020-01-10 12:28 | Outpatient (CLI) | payer OTHER, SELFPAY ==
--- NOTE | 2020-01-10 12:33 | DI.US.S_ITS ---
PROCEDURE: US RENAL COMPLETE INDICATIONS: KIDNEY STONES TECHNIQUE: Real-time scanning was performed of the kidneys and bladder, with image documentation. COMPARISON: [facility], CT, CT ABDOMEN PELVIS W CON, 09/04/2019, 19:47. [facility], CR, XR ABDOMEN 1V, 09/24/2019, 12:26. FINDINGS: Kidneys: Kidneys are normal in size. Right kidney measures 11.3 cm long; left kidney measures 12.2 cm long. Right renal cortical thickness is 1.7 cm; left renal cortical thickness is 1.4 cm. Renal cortical echotexture is normal. No hydronephrosis or nephrolithiasis. No suspicious solid mass lesions. Bladder: Pre-void bladder volume is 389 mL. Post-void residual is 0 mL. Pre-void images demonstrate no intraluminal masses or stones. On pre-void images, both ureteral jets are noted with color Doppler interrogation. (Of note, ureteral jets may not be detectable in up to 25% of cases due to insufficient differences in specific gravity between ureteral and bladder urine). Miscellaneous: No free pelvic fluid. IMPRESSION: No kidney stones are seen on the ultrasound images. Negative for hydronephrosis. No postvoid residual. Dictated by: Sebastian Hidalgo M.D. on 01/10/2020 at 16:58 Approved by: Sebastian Hidalgo M.D. on 01/10/2020 at 16:59
== END ==
PROVIDERS: PCP Physician Assistant; Referring Provider Urology; Visit Provider Urology
DX: N20.0 Calculus of kidney (principal)
CPT/HCPCS: 76770

== ENCOUNTER 2023-04-12 19:35 | Emergency (ER) | payer OTHER, SELFPAY ==
[2023-04-12] VITALS (11 sets, daily range): BP systolic 139–164; BP diastolic 64–75; PULSE 84–110; RESP 16–31; TEMP 36.6; O2SAT 91–95; BMI 42.8
--- NOTE | 2023-04-12 19:48 | DI.RAD.S_ITS ---
PROCEDURE: XR CHEST 1V INDICATIONS: Shortness of breath TECHNIQUE: One view of the chest was acquired. COMPARISON: [facility], , CHEST 2 VIEW, 06/25/2016, 13:54. FINDINGS: Surgical changes and devices: ACDF. Lungs and pleura: Low lung volumes. Lungs appear clear. No pleural effusions or pneumothorax. Mediastinum: Mediastinal contours appear unchanged. Heart size is within normal limits. Bones and chest wall: No suspicious bony lesions. Overlying soft tissues appear unremarkable. IMPRESSION: No acute cardiopulmonary abnormality identified. Dictated by: Renny Rivera M.D. on 04/12/2023 at 20:12 Approved by: Renny Rivera M.D. on 04/12/2023 at 20:13
[2023-04-12 20:02] LABS: Add Manual Diff / Slide Review NO; Basophils Absolute Auto 100 /uL (0-100); Eosinophils Absolute Auto 400 /uL (0-450); Eosinophils Percent Auto 4.3 % (2-4); Hemoglobin 11.9 g/dL (12.0-16.0); Lymphocytes Absolute Auto 1400 /uL (1100-4500); Lymphocytes Percent Auto 14.6 % (25-40); Mean Corpuscular HGB Conc 33.9 % (30-36); Mean Corpuscular Hemoglobin 32.2 PG (26-34); Mean Corpuscular Volume 95.1 fL (80-100); Monocytes Absolute Auto 700 /uL (0-900); Monocytes Percent Auto 7.1 % (3-14); Neutrophils Absolute Auto 6800 /uL (1500-7000); Platelet Count 256 X10^3/uL (150-400); Red Blood Cell Count 3.68 X10^6/uL (4.0-5.2); Red Cell Distribution Width 13.5 % (11.6-14.8); White Blood Cell Count 9.4 X10^3/uL (4.5-11.0)
--- NOTE | 2023-04-12 20:02 | ED_ITS ---
HPI - General Adult General Chief complaint: Shortness of Breath/Dyspnea Stated complaint: SOB, Swelling in legs/feet Time Seen by Provider: 04/12/23 19:49 Source: patient Mode of arrival: Ambulatory History of Present Illness HPI narrative: Patient is a 77-year-old female. Is here for evaluation of swelling in both of her legs and feet and also swelling in her abdomen and shortness of breath. She states the swelling has been worsening over the past several weeks but really got worse this morning and became very short of breath this morning. She would a similar episode of the end of last year. She was placed on Lasix and also po tassium supplementation. She states that she would an issue with a potassium which sounds like her potassium was very elevated so she states she was told to stop taking the Lasix and also the potassium. This was several months ago. She denies chest pain. No fevers. Related Data Home Medications Medication Instructions Recorded Confirmed alprazolam 0.5 mg tablet (Xanax) 0.5 mg PO DAILY ##0 06/17/16 10/07/19 cyclobenzaprine 10 mg tablet 10 mg PO BID ##0 06/17/16 10/07/19 flunisolide 25 mcg (0.025 %) nasal 2 spray intranasal BIDP PRN 06/17/16 10/07/19 spray Allergy Symptoms ##0 insulin glargine 100 unit/mL 35 unit SQ BID ##0 06/17/16 10/07/19 subcutaneous solution (Lantus U-100 Insulin) levothyroxine 200 mcg tablet 200 mcg PO QAM ##0 06/17/16 10/07/19 lisinopril 40 mg tablet 40 mg PO QDAY #30 tabs 06/17/16 10/07/19 metformin 500 mg tablet,extended 1,000 mg PO DAILY ##0 06/17/16 10/07/19 release 24 hr (Glucophage XR) insulin lispro 100 unit/mL 25 unit SQ TID ##0 06/21/16 10/07/19 subcutaneous pen (Humalog KwikPen (U-100) Insulin) aspirin 81 mg tablet,delayed 81 mg PO QDAY ##0 12/02/16 10/07/19 release cholecalciferol (vitamin D3) 50 2,000 iu PO QDAY ##0 12/02/16 10/07/19 mcg (2,000 unit) capsule (Vitamin D3) diazepam 10 mg tablet (Valium) 10 mg PO HSP PRN Anxiety ##0 12/02/16 10/07/19 magnesium oxide 250 mg PO QDAY ##0 12/02/16 10/07/19 simethicone 180 mg capsule 180 mg PO TID ##0 12/02/16 10/07/19 (Phazyme) simvastatin 20 mg tablet 20 mg PO QDAY ##0 12/02/16 10/07/19 vitamin B complex (B 1 tab PO QDAY ##0 12/02/16 10/07/19 Complex-Vitamin B12 tablet) vitamin E 268 mg (400 unit) capsule 400 unit PO QDAY ##0 12/02/16 10/07/19 omeprazole 40 mg capsule,delayed 40 mg PO DAILY 06/02/18 10/07/19 release ascorbic acid (vitamin C) 500 mg 1,000 mg PO DAILY 06/04/18 10/07/19 tablet Previous Rx's Medication Instructions Recorded furosemide 20 mg tablet (Lasix) 40 mg PO DAILY #60 tabs 04/12/23 Allergies Allergy/AdvReac Type Severity Reaction Status Date / Time hydromorphone [HYDROMORPHONE] Allergy Severe PASSED Verified 10/07/19 09:16 OUT, EMESIS Iodine and Iodide Containing Allergy Mild HIVES, Verified 10/07/19 09:16 Produc RASH, [IODINE AND IODIDE ITCHING CONTAINING PRODUC] (HAS TO TAKE PILLS PRIOR TO CT SCAN) lovastatin [LOVASTATIN] Allergy Unknown Verified 10/07/19 09:16 oxycodone [OXYCODONE] Allergy Unknown Disoriented Verified 10/07/19 09:16 and lethargic felodipine [FELODIPINE] AdvReac Mild RED, Verified 10/07/19 09:16 VASODILATION, DIDN'T WORK fluticasone [FLUTICASONE] AdvReac Mild HEADACHE Verified 10/07/19 09:16 Sulfa (Sulfonamide AdvReac Mild TURNED RED Verified 10/07/19 09:16 Antibiotics) [SULFA (SULFONAMIDE ANTIBIOTICS)] Review of Systems Constitutional Constitutional: Reports system reviewed and no additional complaints, except as documented Cardiovascular Cardiovascular: Reports system reviewed and no additional complaints, except as documented Respiratory Respiratory: Reports system reviewed and no additional complaints, except as documented Gastrointestinal Gastrointestinal: Reports system reviewed and no additional complaints, except as documented Musculoskeletal Musculoskeletal: Reports system reviewed and no additional complaints, except as documented Integumentary/Breasts Skin/Breast: Reports system reviewed and no additional complaints, except as documented Hematologic/Lymphatic On Anticoagulants: No Patient History Medical History (Updated 04/12/23 @ 23:15 by Melchor Gannon DO) Chronic diarrhea Diabetes mellitus type 2 in obese Elevated cholesterol Essential hypertension H/O nephrolithotomy with removal of calculi History of uterine cancer Hypothyroidism Surgical History H/O cervical spine surgery History of appendectomy History of cholecystectomy History of incisional hernia repair History of total left knee replacement Previous back surgery S/P JAE-BSO Family History Father Heart disease Gallstones Diabetes mellitus Mother Gallstones Social History household members: spouse Smoking Status: Former smoker Tobacco: How many years used: 35 alcohol intake: never substance use type: does not use Smoking Status: Former smoker alcohol intake frequency: other Substance Use Type: does not use Exam Initial Vital Signs Initial Vital Signs: Vital Signs Pulse Rate 110 H 04/12/23 19:41 Respiratory Rate 29 H 04/12/23 19:41 Pulse Oximetry 91 04/12/23 19:41 Const General: cooperative and No ill appearing HENMT Head: normal to inspection and normocephalic Resp Effort & Inspection: tachypneic Auscultation: no rales, no rhonchi and no wheezes Cardio Rate: regular rate Rhythm: regular rhythm GI Inspection: distended Palpation: firm Skin General: no rashes or lesions noted Neuro General: patient alert, patient awake and moves all extremities Extrem General: edema Course Orders Ordered: Discontinued Medications Furosemide 60 mg/ Sodium (Chloride) 56 mls @ 112 mls/hr IV NOW ONE Stop: 04/12/23 20:04 Last Infusion: 04/12/23 21:49 Dose: 0 mls/hr Documented By: Admin: 04/12/23 20:48 Dose: 112 mls/hr Documented By: DELORES Vital Signs Vital signs: Vital Signs - 8 hr 04/12/23 22:00 04/12/23 22:30 04/12/23 22:48 Pulse Rate 90 84 Respiratory Rate 25 H 21 Blood Pressure 146/67 H Pulse Oximetry 95 95 Oxygen Delivery Method 04/12/23 23:00 Pulse Rate 90 Respiratory Rate 22 Blood Pressure Pulse Oximetry 93 Oxygen Delivery Method Room Air Medical Decision Making Lab Data Lab results reviewed: Yes I reviewed the patient's lab results. 04/12/23 19:55 04/12/23 19:55 Labs: Lab Results 04/12/23 04/12/23 04/12/23 Range/Units 19:55 19:55 19:55 WBC 9.4 (4.5-11.0) X10^3/uL RBC 3.68 L (4.0-5.2) X10^6/uL Hgb 11.9 L (12.0-16.0) g/dL Hct 35.0 L (36-46) % MCV 95.1 (80-100) fL MCH 32.2 (26-34) PG MCHC 33.9 (30-36) % RDW 13.5 (11.6-14.8) % Plt Count 256 (150-400) X10^3/uL Neut % (Auto) 73.0 (50-75) % Lymph % (Auto) 14.6 L (25-40) % Williamson % (Auto) 7.1 (3-14) % Eos % (Auto) 4.3 H (2-4) % Baso % (Auto) 1.0 (0-2) % Neut # (Auto) 6800 (5722-4584) /uL Lymph # (Auto) 1400 (8196-7286) /uL Williamson # (Auto) 700 (0-900) /uL Eos # (Auto) 400 (0-450) /uL Baso # (Auto) 100 (0-100) /uL PT 12.4 (10.1-12.7) SECONDS INR 1.1 (0.9-1.3) Sodium 139 (137-145) mmol/L Potassium 4.2 (3.4-5.1) mmol/L Chloride 103 (98-107) mmol/L Carbon Dioxide 29 (22-32) mmol/L BUN 24 H (7-17) mg/dL Creatinine 1.02 (0.52-1.04) mg/dL Estimated GFR 57 L (>60) mL/min BUN/Creatinine Ratio 23.5 H (6-22) Glucose 106 (80-110) mg/dL Lactate (0.7-2.1) mmol/L Calcium 8.9 (8.4-10.2) mg/dL Total Bilirubin 0.4 (0.2-1.3) mg/dL AST 32 (14-36) IU/L ALT 38 H (<35) IU/L Alkaline Phosphatase 70 (38-126) U/L Troponin I < 0.012 (0.01-0.034) ng/mL NT-Pro-B Natriuret Pep 71 (<450) pg/mL Total Protein 7.5 (6.3-8.2) g/dL Albumin 4.3 (3.5-5.0) g/dL Globulin 3.2 (1.7-4.1) g/dL Albumin/Globulin Ratio 1.3 (1.0-2.8) / Range/Units 19:55 WBC (4.5-11.0) X10^3/uL RBC (4.0-5.2) X10^6/uL Hgb (12.0-16.0) g/dL Hct (36-46) % MCV (80-100) fL MCH (26-34) PG MCHC (30-36) % RDW (11.6-14.8) % Plt Count (150-400) X10^3/uL Neut % (Auto) (50-75) % Lymph % (Auto) (25-40) % Williamson % (Auto) (3-14) % Eos % (Auto) (2-4) % Baso % (Auto) (0-2) % Neut # (Auto) (2915-1736) /uL Lymph # (Auto) (4448-0772) /uL Williamson # (Auto) (0-900) /uL Eos # (Auto) (0-450) /uL Baso # (Auto) (0-100) /uL PT (10.1-12.7) SECONDS INR (0.9-1.3) Sodium (137-145) mmol/L Potassium (3.4-5.1) mmol/L Chloride (98-107) mmol/L Carbon Dioxide (22-32) mmol/L BUN (7-17) mg/dL Creatinine (0.52-1.04) mg/dL Estimated GFR (>60) mL/min BUN/Creatinine Ratio (6-22) Glucose (80-110) mg/dL Lactate 1.5 (0.7-2.1) mmol/L Calcium (8.4-10.2) mg/dL Total Bilirubin (0.2-1.3) mg/dL AST (14-36) IU/L ALT (<35) IU/L Alkaline Phosphatase (38-126) U/L Troponin I (0.01-0.034) ng/mL NT-Pro-B Natriuret Pep (<450) pg/mL Total Protein (6.3-8.2) g/dL Albumin (3.5-5.0) g/dL Globulin (1.7-4.1) g/dL Albumin/Globulin Ratio (1.0-2.8) Imaging Data Chest x-ray: Radiologist's Impression: PROCEDURE:? XR CHEST 1V ? INDICATIONS:? Shortness of breath ? TECHNIQUE:? One view of the chest was acquired.? ? COMPARISON:? [facility], , CHEST 2 VIEW, 06/25/2016, 13:54. ? FINDINGS:? ? Surgical changes and devices:? ACDF. ? Lungs and pleura:? Low lung volumes.? Lungs appear clear.? No pleural effusions or pneumothorax.? ? Mediastinum:? Mediastinal contours appear unchanged.? Heart size is within normal limits. ? ? Bones and chest wall:? No suspicious bony lesions.? Overlying soft tissues appear unremarkable.? ? IMPRESSION:? No acute cardiopulmonary abnormality identified. ECG Data Attestation: I personally reviewed and interpreted this ECG as follows: Interpretation: Sinus tachycardia Ventricular rate 101 Normal axis Normal QRS Normal QTC No ST T wave changes MDM Narrative Medical decision making narrative: Patient was fluid overloaded upon arrival. She is lower extremity edema. Also has abdominal edema. No chest pain. EKGs unremarkable. BNP actually unr emarkable. No signs of pneumonia. She was given Lasix. Her potassium and creatinine are unremarkable. I suspect that the issues that she had before was that she was hyperkalemic. Most likely because of the potassium supplementation. I think that they stopped her Lasix because she had a bump in her creatinine. She diuresed almost 2 L of urine. States she felt much better. She was still quite addendum us but was not hypoxic. Ambulated without becoming severely tachypneic. She felt that she could take Lasix at home and be able to walk around and get to the bathroom. Advised that she contact her primary doctor at the beginning of next week. A prescription for Lasix was sent to the pharmacy of her choice. She was given strict return precautions. She expressed understanding and agreement. Discharge Plan Departure Patient Disposition: Home Clinical Impression: Edema, Shortness of breath Instructions: DI for Peripheral Edema -- Bilateral Activity Restrictions/Additional Instructions: Continue to take all of your medications as directed and take the Lasix as directed. Contact your primary doctor for follow-up. Return to the emergency department for new or worsening symptoms. Prescriptions: New furosemide [Lasix] 20 mg tablet 40 mg PO DAILY Qty: 60 2RF No Action metformin [Glucophage XR] 500 MG tablet extended release 24 hr 1,000 mg PO DAILY Qty: 0 cyclobenzaprine 10 MG tablet 10 mg PO BID Qty: 0 alprazolam [Xanax] 0.5 MG tablet 0.5 mg PO DAILY Qty: 0 flunisolide 0.025 % spray,non-aerosol 2 spray Intranasal BIDP PRN (Reason: Allergy Symptoms) Qty: 0 insulin glargine [Lantus U-100 Insulin] 100 UNIT/1 ML solution 35 unit SQ BID Qty: 0 levothyroxine 200 MCG tablet 200 mcg PO QAM Qty: 0 lisinopril 40 MG tablet 40 mg PO QDAY Qty: 30 insulin lispro [Humalog KwikPen Insulin] 100 UNIT/1 ML insulin pen 25 unit SQ TID Qty: 0 Patient Comments: PT STATED TOOK 10 UNITS THIS MORNING simvastatin 20 MG tablet 20 mg PO QDAY Qty: 0 simethicone [Phazyme] 180 MG capsule 180 mg PO TID Qty: 0 aspirin 81 MG tablet,delayed release (DR/EC) 81 mg PO QDAY Qty: 0 vitamin E 400 UNIT capsule 400 unit PO QDAY Qty: 0 cholecalciferol (vitamin D3) [Vitamin D3] 2,000 UNIT capsule 2,000 iu PO QDAY Qty: 0 vitamin B complex [B Complex-Vitamin B12] 1 EACH tablet 1 tab PO QDAY Qty: 0 magnesium oxide 250 MG tablet 250 mg PO QDAY Qty: 0 diazepam [Valium] 10 MG tablet 10 mg PO HSP PRN (Reason: Anxiety) Qty: 0 omeprazole 40 mg capsule,delayed release(DR/EC) 40 mg PO DAILY ascorbic acid (vitamin C) 500 MG tablet 1,000 mg PO DAILY Referrals: Cori Cheney PA-C [Primary Care Provider] - Stand Alone Forms: Patient Portal/API
[2023-04-12 20:08] LABS: INR 1.1 (0.9-1.3); Prothrombin Time 12.4 SECONDS (10.1-12.7)
[2023-04-12 20:11] LABS: Lactate (Lactic Acid) 1.5 mmol/L (0.7-2.1)
[2023-04-12 20:12] LABS: Alanine Aminotransferase 38 IU/L (<35); Albumin 4.3 g/dL (3.5-5.0); Albumin Globulin Ratio 1.3 (1.0-2.8); Alkaline Phosphatase 70 U/L (38-126); Aspartate Aminotransferase 32 IU/L (14-36); BUN Creatinine Ratio 23.5 (6-22); Bilirubin Total 0.4 mg/dL (0.2-1.3); Blood Urea Nitrogen 24 mg/dL (7-17); Calcium 8.9 mg/dL (8.4-10.2); Carbon Dioxide 29 mmol/L (22-32); Chloride 103 mmol/L (98-107); Estimated Glomerular Filt Rate 57 mL/min (>60); Globulin 3.2 g/dL (1.7-4.1); Glucose 106 mg/dL (80-110); HEMOLYSIS 22 (0-50); Potassium 4.2 mmol/L (3.4-5.1); Sodium 139 mmol/L (137-145); Total Protein 7.5 g/dL (6.3-8.2)
[2023-04-12 20:24] LABS: NT-proBNP (BNP-Adult 18+) 71 pg/mL (<450); Troponin I < 0.012 ng/mL (0.01-0.034)
[2023-04-12] MEDS: FUROSEMIDE 60 MG in SODIUM CHLORIDE 0.9% 50 ML 112 MG IV (20:48)
== END 2023-04-12 23:21 | disposition home or self-care (01) ==
PROVIDERS: Emergency Provider Emergency Medicine; PCP Physician Assistant
DX: R06.02 Shortness of breath (principal); R60.9 Edema, unspecified; R60.0 Localized edema
CPT/HCPCS: 36415; 71045; 80053; 83605; 83880; 84484; 85025; 85610; 93005; 93010; 96365; 99284; J1940

== ENCOUNTER → 2023-05-12 12:00 | Outpatient (CLI) | payer OTHER, SELFPAY ==
--- NOTE | 2023-05-12 | DI.ECHO.S_ITS ---
[facility] +---------+ [facility] +---------+ : : [address] : : : : [id number] : : : : Phone: [phone]+ Echocardiogram Report + + :Name: SP JOHNS Study Date: 05/12/2023 Height: 68 in : :[facility] ReadingLocation: Weight: 275 lb : : Gender: Female BSA: 2.3 m2 : :: 1945 Age: 77 yrs BP: 138/79 mmHg: :Reason For Study: CHRONIC DIASTOLIC CONGESTIVE HEART FAILURE : :Ordering Physician: KLEVER, : :JOANNE Performed By: Julee Strong : :Referring: JOANNE KING : + + Interpretation Summary 1) Normal left ventricular thickness, size, wall motion, and systolic function (EF 60-65%). 2) Normal right ventricular size and function. 3) There is mild aortic stenosis (valve area 1.6cm2, mean gradient 11mmHg). 4) The right ventricular systolic pressure is estimated to be at least 48 mmHg based on an estimated right atrial pressure of 3 mm Hg. 5) No prior Echo available for comparison. Procedure: A two-dimensional transthoracic echocardiogram with color flow and Doppler was performed. The study quality was technically adequate. There is no prior echocardiogram noted for this patient. The patient was in sinus rhythm with heart rates between 83-107 bpm during the exam. Left Ventricle: The left ventricle is normal in size and wall thickness. The ejection fraction is estimated to be 60-65%. Left ventricular systolic function appears normal without focal wall motion abnormalities. Diastolic parameters suggest a relaxation abnormality of the left ventricle, consistent with probable normal filling pressures. Right Ventricle: The right ventricle is normal in size and function. Atria: The left atrial size is normal. Right atrial size is normal. There is no Doppler evidence for an interatrial shunt. Mitral Valve: There is mild mitral annular calcification. The mitral valve leaflets appear mildly thickened, but open well. There is trace mitral regurgitation. Aortic Valve: The aortic valve is trileaflet. The aortic valve opens well. There is mild aortic valve sclerosis. There is mild aortic stenosis. The aortic valve mean gradient is 11 mmHg. The calculated aortic valve area is 1.6 cm2. No aortic regurgitation is present. Tricuspid Valve: The tricuspid valve is normal in structure and function. There is mild tricuspid regurgitation. The right ventricular systolic pressure is estimated to be at least 48 mmHg based on an estimated right atrial pressure of 3 mm Hg. Pulmonic Valve: The pulmonic valve is not well visualized. There is no pulmonic valvular regurgitation. Great Vessels: The aortic root is normal size. The dimensions of the ascending aorta are normal. The IVC is of normal diameter and collapses greater than 50% with a sniff. This suggests a low right atrial pressure of 3 mm Hg. Pericardium/ Pleura There is no pericardial effusion. There is no pleural effusion. MMode/2D Measurements & Calculations LVIDd: 5.1 cm LVOT diam: 2.0 cm LVIDs: 3.6 cm Ao root diam: 3.1 cm FS: 30.0 % asc Aorta Diam: 3.3 cm IVSd: 1.0 cm Ao Arch Diam (Prox Trans): 2.3 cm LVPWd: 0.99 cm LV vance. diameter/BSA (cm/m^2): 2.2 LV sys. diameter/BSA (cm/m^2): 1.5 LA A2 area: 21.9 cm2 RA long axis: 4.6 cm LA A4 area: 21.3 cm2 RA area: 13.5 cm2 LA length (vol): 5.8 cm RA vol: 33.3 ml LA vol: 68.7 ml RA : 14.2 ml/m2 LA vol index: 29.3 ml/m2 IVC diam: 1.8 cm RVD1 (basal): 3.6 cm RVD2 (mid): 2.8 cm TAPSE: 2.2 cm Doppler Measurements & Calculations Ao V2 max: 230.2 cm/sec LVOT Max Satish: 118.5 cm/sec Ao V2 mean: 157.3 cm/sec LV V1 max P.6 mmHg Ao max P.0 mmHg LV V1 VTI: 24.6 cm Ao mean P.3 mmHg JOSELUIS(I,D): 1.6 cm2 Ao V2 VTI: 46.6 cm JOSELUIS(V,D): 1.6 cm2 sev ratio: 0.53 JOSELUIS indexed to BSA (cm^2/m^2): 0.70 MV E max satish: 116.7 cm/sec TR max satish: 336.3 cm/sec MV A max satish: 131.2 cm/sec TR max P.2 mmHg MV E/A: 0.89 PA V2 max: 213.0 cm/sec Med Peak E' Satish: 6.6 cm/sec PA V2 mean: 142.5 cm/sec E/E' med: 17.6 PA mean P.6 mmHg Lat Peak E' Satish: 6.1 cm/sec PA pr(Accel): 34.5 mmHg E/E' lat: 19.0 E/e' average: 18.3 MV dec time: 0.26 sec SV(LVOT): 76.8 ml Reading Physician:03:28 PM
== END ==
PROVIDERS: PCP Physician Assistant Medical; Referring Provider Internal Medicine Cardiovascular Disease; Visit Provider Internal Medicine Cardiovascular Disease
DX: I50.32 Chronic diastolic (congestive) heart failure (principal); I27.20 Pulmonary hypertension, unspecified; I08.3 Combined rheumatic disorders of mitral, aortic and tricuspid valves
CPT/HCPCS: 93306